=== PATIENT | male | born 1960 | race Caucasian/White ===

== ENCOUNTER 2017-02-19 09:14 | Outpatient (CLI) | payer OTHER | END 2017-02-19 09:15 | disposition home or self-care (01) | LOC: SC 09:14 | PROVIDERS: ATTEND Internal Medicine Pulmonary Disease | DX: G47.33 Obstructive sleep apnea (adult) (pediatric) (principal) | CPT/HCPCS: 99212; 99213 ==

== ENCOUNTER 2018-04-10 08:59 | Outpatient (CLI) | payer OTHER | END 2018-04-10 09:00 | disposition home or self-care (01) | LOC: SC 08:59 | PROVIDERS: ATTEND Nurse Practitioner Family | DX: G47.33 Obstructive sleep apnea (adult) (pediatric) (principal) | CPT/HCPCS: 99212; 99214 ==

== ENCOUNTER 2019-02-23 10:06 | Outpatient (CLI) | payer OTHER ==
--- NOTE | 2019-02-23 11:00 | SLEEP CARE CONSULTATION ---
Information from patient questionnaire entered by Christina Moran. I have reviewed and concur with the information entered by Christina Moran. This document represents the service I personally performed and the decisions made by me, Amy Rider, RN, MSN, BUTTER FAT TESTER. History of Present Illness Previous diagnosis: Very Severe, Obstructive Sleep Apnea-Hypopnea Syndrome AHI: 63.3 Reason for follow up: other (10 MONTH- TRANSFER DME ) Equipment type: CPAP Equipment obtained from: [employer] (would like to change to new company.) Mask style: Nasal (nasal - Dreamwear) Mask brand: Respironics Backup mask available: Yes Last cushion change: 3 months ago Prior sleep studies: Yes HPI additional information: patient is also due for an updated device and would like to proceed. He was shown both styles and differences. He chose to update to [employer] Respironics. CPAP Compliance Data - Data Reviewed with Patient Average duration of nightly device use: 7h 19m Compliance rate %: 99.4 Current pressure setting (cmH2O): 10-12.5 Humidity settin Heated hose settin Average residual AHI: 3.7 Average large leak: 1m 28s Subjective Patient concerns: reports: mask discomfort (mild intermittent nasal discomfort - he changed last about 3 months ago. ), dry mouth, nose, throat (intermittent dry mouth / throat). denies: aerophagia, air blowing in eyes, mask leak noise, condensation in mask/hose, nasal congestion, epistaxis Observed to snore while using device: No Current pressure setting perceived as: comfortable On therapy, patient: reports: sleeping better, awakening more refreshed, being more awake and alert during the day, more rested overall. denies: drowsiness while driving Initial [place] Sleepiness Scale score: 7 Current [place] Sleepiness Scale score: 4 Allergies and Home Medications Known drug allergies: Yes Home medication list reviewed: Yes Allergy and home medication list: Medication Name (generic/name brand) Strength & Dosage Cosopt 22.3-6.8 mg/ml ophthalmic solution One drop each eye twice daily Lumigan 0.0% ophthalmic solution One drop each eye daily Sertraline HCL 100mg tab one daily Meloxicam 15mg tab daily as needed Humira 40mg/0.8ml Kit (Adalimumab) 40mcg every 2 weeks Fosinopril Sodium 40mg tab one daily Hydrochlorothiazide 25mg tab one daily in the am Claritin (Loratadine) 10mg tab one daily Fluticasone Propionate 50mcg/act nasal One spray each nostril twice daily Fibercon 625mg tab two daily Multivitamins Tab one daily Allergy List Penicillin Cats Pollen (trees, grass, schneider, etc) Review of Systems Review of systems same as previous: No (right knee replacement ) Physical Exam Blood Pressure: 134/68 Cuff size: long Heart Rate: 79 O2 Saturation: 98 Height: 5 ft 11 in Weight: 316 lb 9.6 oz Weight change since last visit: lost 4 pounds Body Mass Index: 44.1 BMI Classification: Obesity Class 3 Impression and Plan 1. Obstructive Sleep Apnea-Hypopnea Syndrome, very severe, with good treatment compliance and good apnea control. On CPAP therapy, the patient has better sleep quality and is more rested overall. To reduce mask irritation, he is advised to change mask cushion more frequently. He would also like to change back to the Dreamwear nasal pillows. Until then, instead of vaseline which can break down the mask, I gave him samples of Marvin Ease nasal cream to use. Printed ins tructions given with information how to obtain more. To reduce dryness symptoms he is to reduce the heated hose. I will also update his CPAP which has a better system. His current CPAP is over 5 years old and of reasonable. He would also like to transfer to a new DME so I will have my e commerce merchandising coordinator inform of his choices and a DWO prescription will be made. He has started to lose weight. His goal is 50 pounds. I explained how significant weight loss can reduce apnea and CPAP pressure requirements. He is currently using the higher range of his autoPAP pressure so some weight loss should be accomodated with this range. Symptoms to report for pressure adjustment. I also showed him BMI chart and praised goal of weight loss as current BMI is Morbid obesity which also increases overall health risk. Patient's apnea severity and rationale for treatment to reduce apnea, improve sleep quality and reduce cardiovascular and cerebrovascular events was reviewed. I also reviewed the benefit of consistent device use of CPAP for hypertension, depression/anxiety. * Continue CPAP pressure at 10-12.5cmH2O * [facility] * Transfer to new DME * Mask refitting * Implement measures to reduce nasal irritation * Notify me if snoring with mask or feeling that the pressure is too much or too little * continue to lose weight * Return for follow up in 6 weeks after new device , or sooner if concerns arise I spent 100% of this 30 minute visit face to face with the patient with greater than 50% of this was spent time counseling the patient and coordination of care.
[2019-02-23 11:01] VITALS: BP 134/68
== END 2019-02-23 10:07 | disposition home or self-care (01) ==
LOC: SC 10:06
PROVIDERS: ATTEND Nurse Practitioner Family
DX: G47.33 Obstructive sleep apnea (adult) (pediatric) (principal); E66.01 Morbid (severe) obesity due to excess calories; Z68.41 Body mass index [BMI] 40.0-44.9, adult
CPT/HCPCS: 99212; 99214

== ENCOUNTER 2019-05-21 12:45 | Outpatient (CLI) | payer OTHER ==
[2019-05-21 13:41] VITALS: BP 130/68
--- NOTE | 2019-05-21 13:41 | SLEEP CARE CONSULTATION ---
Information from patient questionnaire entered by Frida Eng. I have reviewed and concur with the information entered by Frida Eng. This document represents the service I personally performed and the decisions made by me, Amy Rider, RN, MSN, TECHNICAL MANAGER. History of Present Illness Previous diagnosis: Very Severe, Obstructive Sleep Apnea-Hypopnea Syndrome AHI: 63.3 Reason for follow up: first compliance after device update Equipment type: CPAP Equipment obtained from: [facility] (not happy with new DME - in set up and charge for service as he was charged 3 times for same service / tried to contact corpor ate office but was referred to other numbers and resolve.) Mask style: Nasal (N30i) Mask brand: Resmed Backup mask available: Yes Last cushion change: none since set up HPI additional information: Patient came in office voicing frustration with new DME set up. He was set up with a new CPAP. He had to request the Dreamstation as was initially set up with Res Med device. Prescription stated Dreamstation. He is pleased with new Dreamstation CPAP. He was fitted with a new mask and no longer has nasal irritation. It is the Res Med nasal cushion mask with hose on top of head. Marvin Ease nasal cream reduced irritation until new mask. CPAP Compliance Data - Data Reviewed with Patient Average duration of nightly device use: 8 Compliance rate %: 100 Current pressure setting (cmH2O): 10-12.5 Humidity settin Heated hose settin Average residual AHI: 6.4 Central apnea: 0.3 Obstructive apnea: 5.3 Hypopnea: 0.8 Average large leak: 52 sec Subjective Patient concerns: reports: nasal congestion (intermittent), dry mouth, nose, throat (daily dry mouth- increasing in severity. ). denies: aerophagia, mask discomfort, air blowing in eyes, mask leak noise, condensation in mask/hose, epistaxis Observed to snore while using device: No Current pressure setting perceived as: comfortable On therapy, patient: reports: sleeping better, awakening more refreshed, being more awake and alert during the day, more rested overall. denies: drowsiness while driving Initial [place] Sleepiness Scale score: 7 Current [place] Sleepiness Scale score: 3 Allergies and Home Medications Known drug allergies: Yes (penicillin , cats, pollen ) Home medication list reviewed: Yes (lumigan replaced with latanoprost/added amlodipine 5mg daily/no other martin) Review of Systems Review of systems same as previous: Yes Physical Exam Blood Pressure: 130/68 Cuff size: long Heart Rate: 65 O2 Saturation: 98 Height: 5 ft 11 in Weight: 322 lb Weight change since last visit: gained 6 pounds Body Mass Index: 44.9 BMI Classification: Morbidly Obese Impression and Plan 1. Obstructive Sleep Apnea-Hypopnea Syndrome, very severe, with good treatment compliance and good apnea control on updated device . On CPAP therapy, the patient has better sleep quality and is more rested overall. Patient came in very frustrated with set up and charging for new CPAP with new DME. For DME concerns I will have him discuss his problems with our marketing and development coordinator who works with DMEs for transfers and service. In addition, I advised him to contact his insurance company to clarify payment and his responsibility. If he wishes to change DME to another company, he will probably have to return his new CPAP and start with new DME. He is to contact me for new transfer and set up if this is his decision and new compliance follow up to be scheduled. The patients pressure will be changed to autoCPAP 12-15 cmH20 For elevation of residual AHI. Patient advised to contact me if pressure change is uncomfortable so that it can be adjusted. Goals for apnea control discussed. I also showed him how he could track his AHI on a sample device and to contact me if above 5 consistently. I again reviewed his need for weight loss for overall kiah. He is currently morbidly obese which increases overall health risks. I also reviewed how weight loss reduces apnea and CPAP pressure requirements. I again reviewed symptoms to report for CPAP pressure adjustment. Patient's apnea severity and rationale for treatment to reduce apnea, improve sleep quality and reduce cardiovascular and cerebrovascular events was reviewed. I also reviewed the benefit of consistent device use of CPAP for hypertension, depression/anxiety. * Change CPAP pressure to 12-15 cmH2O * Notify me if snoring with mask or feeling that the pressure is too much or too little * Attempt to lose weight * Call this office if any problems using CPAP or if want to transfer DME * Return for follow up in 1 year , or sooner if concerns arise Counseling Topics: Weight loss health impact Time Spent with Patient (minutes): 35 I spent 100% of this visit face to face with the patient with greater than 50% of this was spent time counseling the patient and coordination of care.
== END 2019-05-21 12:46 | disposition home or self-care (01) ==
LOC: SC 12:45
PROVIDERS: ATTEND Nurse Practitioner Family
DX: G47.33 Obstructive sleep apnea (adult) (pediatric) (principal); E66.01 Morbid (severe) obesity due to excess calories; Z68.41 Body mass index [BMI] 40.0-44.9, adult
CPT/HCPCS: 99212; 99214

== ENCOUNTER 2019-06-13 12:57 | Outpatient (CLI) | payer OTHER ==
--- NOTE | 2019-06-13 14:08 | CT Report ---
Reason: CHRONIC PANSINUSITIS Procedure Date: 06/13/2019 Accession Number: [id number] / [id number] Procedure: CT - Sinuses CPT Code: Final Report FULL RESULT: EXAM: CT SINUS EXAM DATE: 06/13/2019 01:12 PM. HISTORY: 4-year-old presenting with chronic sinusitis type symptoms. Evaluate for sinus pathology. COMPARISONS: None. TECHNIQUE: Routine multi-axial CT imaging performed through the sinuses. Iodinated IV contrast: None. Reconstructions: Multiplanar reformats. In accordance with CT protocol optimization, one or more of the following dose reduction techniques were utilized for this exam: automated exposure control, adjustment of mA and/or KV based on patient size, or use of iterative reconstructive technique. FINDINGS: RIGHT Frontal: Mild mucosal thickening. Ethmoid: Postsurgical changes of ethmoidectomy. Mild mucosal thickening. Maxillary: Postsurgical changes of maxillary antrostomy and uncinectomy. There is mild mucosal thickening and small volume frothy material seen. There appears to be small volume air-fluid level. Sphenoid: Small volume frothy material. Drainage Pathways: There is obstruction of the right sphenoethmoidal recess. There is mild to moderate mucosal thickening of the frontal recess. The surgically modified ostiomeatal complex is patent. LEFT Frontal: Mild mix of thickening with small volume frothy material. Ethmoid: Postsurgical changes of ethmoidectomy. Mild mucosal thickening. Maxillary: Postsurgical changes of maxillary antrostomy and uncinectomy. Small volume air fluid level seen. Sphenoid: Minimal mucosal thickening. Drainage Pathways: There is moderate mucosal thickening of the frontal recess. The surgically modified ostiomeatal unit and sphenoethmoidal recess are patent. Nasal Cavity: Postsurgical changes of prior turbinectomy. There is hypertrophy of the right-sided turbinates. Slight asymmetry to the olfactory grooves with a large right olfactory groove compared to the left. The right olfactory groove depth measures 5.9 mm while the left olfactory groove depth measures 5.3 mm (series 5, image 45). Osseous Structures: Mild left TMJ arthropathy. No definite acute osseous fracture seen. No suspicious osseous lesion. Changes of hyperostosis frontalis internus. Orbits: Changes of bilateral lens replacement. There appears to be metallic structure along the lateral aspect of the left globe that may represent changes of scleral banding. Other: None. IMPRESSION: 1. Postsurgical changes of bilateral maxillary antrostomy, bilateral uncinectomy, bilateral ethmoidectomy, and bilateral turbinectomy. 2. There are small volume air-fluid levels seen within the maxillary sinuses as well as small-volume frothy material seen within the right maxillary sinus, right sigmoid sinus, and left frontal sinus. Findings may represent acute sinusitis in appropriate clinical setting. 3. Additional mild paranasal sinus mucosal thickening as detailed above. 4. There appears to be mucosal obstruction of the right sphenoethmoidal recess. There is mild to moderate mucosal thickening of the frontal recesses which appear patent. RADIA
== END 2019-06-13 12:58 | disposition home or self-care (01) ==
LOC: DI 12:57
PROVIDERS: ATTEND Otolaryngology
DX: J32.4 Chronic pansinusitis (principal)
CPT/HCPCS: 70486

== ENCOUNTER 2020-07-14 09:03 | Outpatient (CLI) | payer OTHER ==
--- NOTE | 2020-07-14 09:56 | SLEEP CARE CONSULTATION ---
Information from patient questionnaire entered by Frida Eng. I have reviewed and concur with the information entered by Frida Eng. This document represents the service I personally performed and the decisions made by , Maday Taylor ARNP. History of Present Illness Service Date and Time: 07/14/2020 0903 Previous diagnosis: Very Severe, Obstructive Sleep Apnea-Hypopnea Syndrome AHI: 63.3 (in 2014)(71.1 in 2013) Reason for follow up: annual (last seen 05/2019) Equipment type: CPAP Equipment obtained from: [employer] (in [place]; getting supplies as needed, very satisfied) Mask style: Nasal Mask brand: Resmed (N30i) Backup mask available: Yes (other mask) Last cushion change: 3 months Prior sleep studies: Yes Year and Where: 2014 - [facility] Type of Sleep Study: Polysomnography HPI additional information: ALEJANDRA GARCIA was diagnosed to have very severe, AHI 63.3, obstructive sleep apnea-hypopnea syndrome and returned today for CPAP therapy annual follow-up. CPAP Compliance Data - Data Reviewed with Patient Average duration of nightly device use: 7 hr 14 min Compliance rate %: 98.9 (180 days) Current pressure setting (cmH2O): 12-15 Humidity settin Heated hose settin Average residual AHI: 3.9 Average large leak: 1 min 35 sec Subjective Missed days of use due to: reports: other (power outage) Patient concerns: reports: dry mouth, nose, throat (has improved, he has adjusted humidity/heated hose as needed). denies: aerophagia, mask discomfort, air blowing in eyes, mask leak noise, condensation in mask/hose, nasal congestion, epistaxis, other Observed to snore while using device: No Current pressure setting perceived as: comfortable On therapy, patient: reports: sleeping better, awakening more refreshed, being more awake and alert during the day, more rested overall. denies: drowsiness while driving Initial [place] Sleepiness Scale score: 7 (in 2013) Current [place] Sleepiness Scale score: 2 Allergies and Home Medications Home medication list reviewed: Yes (no new meds) Review of Systems Review of systems same as previous: Yes (no changes) Physical Exam Heart Rate: 60 O2 Saturation: 98 Height: 5 ft 11 in Weight: 318 lb Body Mass Index: 44.3 BMI Classification: Morbidly Obese Impression and Plan 1. Obstructive Sleep Apnea-Hypopnea Syndrome, very severe, with excellent treatment compliance and good apnea control. On CPAP therapy, the patient has better sleep quality and is more rested overall. He has has some mouth dryness that is improving with adjusting his humidity or heated hose. He is currently at 1 on the humidity setting and 5 on the heated hose. I advised him to increase the humidity setting to 2-3 as needed. Oral dryness can be reduced by adjusting humidity setting higher or heated hose lower or by adjusting both settings. Verbal instructions given on how to change humidity and heated hose settings with rationale explaining why to change. Patient's apnea severity and rationale for treatment to reduce apnea, improve sleep quality and reduce cardiovascular and cerebrovascular events was reviewed. I also reviewed the benefit of consistent device use of CPAP for hypertension, depression and anxiety. 2. Morbid Obesity, unspecified. Currently patients BMI is 44.3. Obesity increases the risk of apnea, CPAP pressure requirements and overall health risks especially cardiovascular and diabetes. Thus patient is advised to lose weight. Weight loss can be done with reducing portion size, reducing refined foods and balancing content with vegetables, fruit and whole grain foods. The patient's CPAP pressure range should accommodate some weight loss. Symptoms to report for additional pressure adjustment discussed. * Continue auto CPAP pressure at 12-15 cmH2O * Notify me if snoring with mask or feeling that the pressure is too much or too little * Attempt to lose weight * Call this office if any problems using CPAP * Return for follow up in 1 year, or sooner if concerns arise Counseling Topics: Spare mask, Weight loss health impact Visit Type: In Office Time Spent with Patient (minutes): 15 Provider Statement: I spent 100% of the Face to Face Visit with the patient with greater than 50% spent counseling the patient and coordination of care.
== END 2020-07-14 09:04 | disposition home or self-care (01) ==
LOC: SC 09:03
PROVIDERS: ATTEND Nurse Practitioner Family
DX: G47.33 Obstructive sleep apnea (adult) (pediatric) (principal); E66.01 Morbid (severe) obesity due to excess calories; Z68.41 Body mass index [BMI] 40.0-44.9, adult
CPT/HCPCS: 99212

== ENCOUNTER 2020-08-20 12:00 | Outpatient (CLI) | payer OTHER ==
--- NOTE | 2020-08-20 17:53 | XRAY Report ---
PROCEDURE: Ankle 3 View RT INDICATIONS: ANKLE JOINT PAIN, RIGHT TECHNIQUE: 3 views of the ankle were acquired. COMPARISON: None FINDINGS: Bones: No acute fractures or dislocations. There is a remote, comminuted fracture seen involving the medial malleolus. Ankle mortise is normally aligned. No suspicious bony lesions. The talar dome d emonstrates an unremarkable appearance. Incidental note is made of a prominent enthesophyte at the Achilles insertion. Soft tissues: Generalized soft tissue swelling is seen. IMPRESSION: Remote, comminuted fracture fragments of the medial malleolus. Prominent enthesophyte formation along the Achilles insertion at the posterior calcaneus. Reviewed by: Henry Fuentes MD on 08/20/2020 4:51 PM [facility] Approved by: Henry Fuentes MD on 08/20/2020 4:51 PM [facility] Station ID: [id number]
== END 2020-08-20 23:59 | disposition home or self-care (01) ==
LOC: DI.N 12:00
PROVIDERS: ATTEND Family Medicine
DX: S82.51XA Displaced fracture of medial malleolus of right tibia, initial encounter for closed fracture (principal)

== ENCOUNTER 2021-08-09 10:47 | Outpatient (CLI) | payer OTHER ==
[2021-08-09 11:32] VITALS: BP 153/77
--- NOTE | 2021-08-09 11:32 | SLEEP CARE CONSULTATION ---
Information from patient questionnaire entered by Wyatt Curran MA. I have reviewed and concur with the information entered by Wyatt Curran MA. This document represents the service I personally performed and the decisions made by , Maday Taylor ARNP. History of Present Illness Service Date and Time: 08/09/2021 1100 Previous diagnosis: Very Severe, Obstructive Sleep Apnea-Hypopnea Syndrome AHI: 63.3 (in 2014)(71.1 in 2013) Reason for follow up: annual (LAST SEEN 07/14/2020, RESMED, ) Equipment type: CPAP Equipment obtained from: [employer] (in [place]; getting supplies as needed, very satisfied) Mask style: Nasal Mask brand: Respironics ([employer]wear) Backup mask available: Yes (old mask) Last cushion change: 1 week ago Prior sleep studies: Yes Year and Where: 2014 - [facility] Type of Sleep Study: Polysomnography HPI additional information: ALEJANDRA GARCIA was diagnosed to have very severe, AHI 63.3, obstructive sleep apnea-hypopnea syndrome and returned today for CPAP therapy annual follow-up. Sleep Study - Results Type of Sleep Study: Polysomnography Prior sleep studies: Yes Year and Where: 2014 - [facility] CPAP Compliance Data - Data Reviewed with Patient Average duration of nightly device use: 7 hours 3 minutes Compliance rate %: 98.9 (180 days; 178/180 used) Current pressure setting (cmH2O): 12-15 Humidity settin Heated hose settin Average residual AHI: 4.2 Central apnea: 0.3 Obstructive apnea: 3.2 Average large leak: 1 minute Subjective Missed days of use due to: reports: other (power outages) Patient concerns: reports: dry mouth, nose, throat (frequently, not all the time). denies: aerophagia, mask discomfort, air blowing in eyes, mask leak noise, condensation in mask/hose, nasal congestion, epistaxis, other Observed to snore while using device: No Current pressure setting perceived as: comfortable On therapy, patient: reports: sleeping better, awakening more refreshed, being more awake and alert during the day, more rested overall. denies: drowsiness while driving Initial [place] Sleepiness Scale score: 7 (in 2013) Current [place] Sleepiness Scale score: 2 Allergies and Home Medications Home medication list reviewed: Yes (no changes) Review of Systems Review of systems same as previous: Yes (no changes) Physical Exam Vital signs obtained and entered by: ALISIA Blood Pressure: 153/77 (left) Cuff size: wrist Heart Rate: 69 O2 Saturation: 96 (paper mask) Height: 5 ft 11 in Weight: 334 lb Body Mass Index: 46.5 BMI Classification: Morbidly Obese Impression and Plan 1. Obstructive Sleep Apnea-Hypopnea Syndrome, very severe, with good treatment compliance and good apnea control. On CPAP therapy, the patient has better sleep quality and is more rested overall. Patient states he may like to change from his nasal cushion to nasal pillows mask. He request this from his [employer] company. I will write a prescription to update his supplies with a note about the nasal pillows. Patient is satisfied with current treatment and has significant improvement of his sleep apnea. He has no complaints of skin irritation, epistaxis or aerophagia. He frequently gets oral dryness but has been adjusting his humidity and heated hose as needed. Patient's apnea severity and rationale for treatment to reduce apnea, improve sleep quality and reduce cardiovascular and cerebrovascular events was reviewed. I also reviewed the benefit of consistent device use of CPAP for hypertension, depression and anxiety. 2. Obesity, unspecified. Currently patients BMI is 46.5. Obesity increases the risk of apnea, CPAP pressure requirements and overall health risks especially cardiovascular and diabetes. Thus patient is advised to lose weight. * Continue auto CPAP pressure at 12-15 cmH2O * Update supplies * Notify me if snoring with mask or feeling that the pressure is too much or too little * Attempt to lose weight * Call this office if any problems using CPAP * Return for follow up in 1 year, or sooner if concerns arise Counseling Topics: Spare mask, Weight loss health impact Visit Type: In Office Time Spent with Patient (minutes): 18 Provider Statement: I spent 100% of the Face to Face Visit with the patient with greater than 50% spent counseling the patient and coordination of care.
== END 2021-08-09 10:48 | disposition home or self-care (01) ==
LOC: SC 10:47
PROVIDERS: ATTEND Nurse Practitioner Family
DX: G47.33 Obstructive sleep apnea (adult) (pediatric) (principal); E66.01 Morbid (severe) obesity due to excess calories; Z68.42 Body mass index [BMI] 45.0-49.9, adult
CPT/HCPCS: 99212

== ENCOUNTER 2021-08-19 08:00 | Outpatient (CLI) | payer OTHER ==
--- NOTE | 2021-08-19 16:52 | XRAY Report ---
PROCEDURE: Chest 2 View X-Ray INDICATIONS: PNEUMONIA TECHNIQUE: 2 view(s) of the chest. COMPARISON: None. FINDINGS: Surgical changes and devices: None. Lungs and pleura: No pleural effusions or pneumothorax. Lungs are clear. Mediastinum: Mediastinal contours are normal. Heart size is normal. Bones and chest wall: No suspicious bony abnormalities. Soft tissues appear unremarkable. IMPRESSION: No evidence of acute pulmonary process. Reviewed by: Nick Vidales MD on 08/19/2021 4:50 PM PDT Approved by: Nick Vidales MD on 08/19/2021 4:50 PM PDT Station ID: [id number]
== END 2021-08-19 23:59 | disposition home or self-care (01) ==
LOC: DI.N 08:00
PROVIDERS: ATTEND Physician Assistant Medical
DX: J18.9 Pneumonia, unspecified organism (principal)

== ENCOUNTER 2022-01-17 13:06 | Outpatient (CLI) | payer OTHER ==
--- NOTE | 2022-01-25 08:40 | Ultrasound Report ---
PROCEDURE: Axilla INDICATIONS: AXILLARY LYMPHADENOPATHY TECHNIQUE: Real-time focused scanning was performed of the left axilla, with image documentation. COMPARISON: None. FINDINGS: There are numerous right axillary lymph nodes which demonstrate normal cortical thickness w ith preservation of the fatty dolores and no threshold enlarged lymph node. IMPRESSION: Normal right axillary lymph nodes, without enlargement or suspicious features. Reviewed by: Jorge Leslie MD on 01/25/2022 8:39 AM PDT Approved by: Jorge Leslie MD on 01/25/2022 8:39 AM PDT Station ID: [id number]
== END 2022-01-17 13:07 | disposition home or self-care (01) ==
LOC: DI 13:06
PROVIDERS: ATTEND Registered Nurse
DX: R59.0 Localized enlarged lymph nodes (principal)

== ENCOUNTER 2022-01-17 13:07 | Outpatient (CLI) | payer OTHER ==
--- NOTE | 2022-01-17 15:14 | XRAY Report ---
PROCEDURE: Chest 2 View X-Ray INDICATIONS: AXILLARY LYMPHADENOPATHY TECHNIQUE: 2 views of the chest COMPARISON: 08/19/2021 FINDINGS: No surgical devices. The lung volumes are slightly low. No dense consolidation or pleural effusion. Heart size is normal. No acute or suspicious osseous abnormality. IMPRESSION: No acute radiographic abnormality. Reviewed by: Cain Burns MD on 01/17/2022 3:12 PM PDT Approved by: Cain Burns MD on 01/17/2022 3:12 PM PDT Station ID: [id number]
== END 2022-01-17 13:08 | disposition home or self-care (01) ==
LOC: DI 13:07
PROVIDERS: ATTEND Registered Nurse
DX: R59.0 Localized enlarged lymph nodes (principal)

== ENCOUNTER 2022-08-29 12:51 | Outpatient (CLI) | payer OTHER ==
--- NOTE | 2022-08-29 13:24 | Sleep Patient Instructions ---
Sleep Center Visit Summary - Patient Visit Information Reason for Visit: Annual visit for PAP therapy - Patient Instructions Additional Instructions: You will continue with CPAP therapy with pressure set at 12-15 cmH2O. A supply prescription will be updated with your DME. We encourage you to continue to try to lose weight. Please follow up with the sleep care office in 1 year. - Clinic Information Contact: [facility] [address] [place] [address] [email or web address] T: [phone]
--- NOTE | 2022-08-29 13:26 | SLEEP CARE CONSULTATION ---
Information from patient questionnaire entered by Vivienne Haq. I have reviewed and concur with the information entered by Vivienne Haq. This document represents the service I personally performed and the decisions made by me, Maday Taylor ARNP. History of Present Illness Service Date and Time: 08/29/2022 1251 Previous diagnosis: Very Severe, Obstructive Sleep Apnea-Hypopnea Syndrome AHI: 63.3 (in 2014)(71.1 in 2013) Reason for follow up: annual (LAST SEEN 07/2021) Equipment type: CPAP ([employer]LETT Dreamstation (not recalled) SD CARD NEEDED) Equipment obtained from: [employer] (in [place]; getting supplies as needed, very satisfied) Mask style: Nasal Mask brand: Respironics Backup mask available: Yes (other mask) Last cushion change: 2 months Prior sleep studies: Yes Year and Where: 2014 - [facility] Type of Sleep Study: Polysomnography HPI additional information: ALEJANDRA GARCIA was diagnosed to have very severe, AHI 63.3, obstructive sleep apnea-hypopnea syndrome and returned today for CPAP therapy annual follow-up. Sleep Study - Results Type of Sleep Study: Polysomnography Prior sleep studies: Yes Year and Where: 2014 - [facility] CPAP Compliance Data - Data Reviewed with Patient Average duration of nightly device use: 7 hours 31 minutes Compliance rate %: 100 (180/180 days used) Current pressure setting (cmH2O): 12-15 Average residual AHI: 3.8 Central apnea: 0.2 Obstructive apnea: 3 Hypopnea: 0.6 Average large leak: 48 secs Subjective Patient concerns: reports: dry mouth, nose, throat (mild dry nose; increased humidity, improved). denies: aerophagia, mask discomfort, air blowing in eyes, mask leak noise, condensation in mask/hose, nasal congestion, epistaxis Observed to snore while using device: No Current pressure setting perceived as: comfortable On therapy, patient: reports: sleeping better, awakening more refreshed, being more awake and alert during the day, more rested overall. denies: drowsiness while driving Initial [place] Sleepiness Scale score: 7 (in 2013) Current [place] Sleepiness Scale score: 0 (08/29/22) Allergies and Home Medications Known drug allergies: No Drug allergies reviewed: Yes Home medication list reviewed: Yes (Montelukast) Review of Systems Review of systems same as previous: Yes (no changes) Physical Exam Vital signs obtained and entered by: VIVIENNE Chilel MA Blood Pressure: 124/76 (LEFT ARM) Cuff size: long Heart Rate: 73 O2 Saturation: 98 Height: 5 ft 11 in Weight: 327 lb 12.8 oz Weight change since last visit: 7 lb loss Body Mass Index: 45.7 BMI Classification: Morbidly Obese Impression and Plan 1. Obstructive Sleep Apnea-Hypopnea Syndrome, very severe, with good treatment compliance and good apnea control. On CPAP therapy, the patient has better sleep quality and is more rested overall. Patient has significant improvement of their sleep apnea and is satisfied with current CPAP therapy. He did get a little bit of dry nose but increased his humidifier setting this has improved. He still gets a little bit dry but overall the dryness is better. Patient's apnea severity and rationale for treatment to reduce apnea, improve sleep quality and reduce cardiovascular and cerebrovascular events was reviewed. I also reviewed t he benefit of consistent device use of CPAP for hypertension, depression and anxiety. 2. Obesity, unspecified. Currently patients BMI is 45.7. Obesity increases the risk of apnea, CPAP pressure requirements and overall health risks especially cardiovascular and diabetes. Thus patient is advised to lose weight. * Continue auto CPAP pressure at 12-15 cmH2O * Update supplies * Notify me if snoring with mask or feeling that the pressure is too much or too little * Attempt to lose weight * Call this office if any problems using CPAP * Return for follow up in 1 year, or sooner if concerns arise Counseling Topics: Spare mask, Weight loss health impact Visit Type: In Office Time Spent with Patient (minutes): 20 Provider Statement: I spent 100% of the Face to Face Visit with the patient with greater than 50% spent counseling the patient and coordination of care.
[2022-08-29 13:27] VITALS: BP 124/76
== END 2022-08-29 12:52 | disposition home or self-care (01) ==
LOC: SC 12:51
PROVIDERS: ATTEND Nurse Practitioner Family
DX: G47.33 Obstructive sleep apnea (adult) (pediatric) (principal); E66.01 Morbid (severe) obesity due to excess calories; Z68.42 Body mass index [BMI] 45.0-49.9, adult
CPT/HCPCS: 99212; 99213

== ENCOUNTER 2022-12-07 12:48 | Outpatient (CLI) | payer OTHER | END 2022-12-07 12:49 | disposition EMS.NT | LOC: EMS 12:48 | DX: Z03.89 Encounter for observation for other suspected diseases and conditions ruled out (principal) ==

== ENCOUNTER 2023-07-02 10:21 | Outpatient (CLI) | payer OTHER ==
--- NOTE | 2023-07-02 10:48 | SLEEP CARE CONSULTATION ---
Information from patient questionnaire entered by Vivienne Haq. I have reviewed and concur with the information entered by Vivienne Haq. This document represents the service I personally performed and the decisions made by me, Maday Taylor ARNP. History of Present Illness Service Date and Time: 07/02/2023 1021 Previous diagnosis: Very Severe, Obstructive Sleep Apnea-Hypopnea Syndrome AHI: 63.3 (in 2014)(71.1 in 2013) Reason for follow up: first compliance after device update Equipment type: CPAP ([employer] 11 AUTOSET S/U 05/15/23) Equipment obtained from: [employer] (in [place]; getting supplies as needed, very satisfied) Mask style: Nasal Mask brand: Respironics (Dreamwear) Backup mask available: Yes Last cushion change: 1 month Prior sleep studies: Yes Year and Where: 2014 - [facility] Type of Sleep Study: Polysomnography HPI additional information: ALEJANDRA GARCIA was diagnosed to have very severe, AHI 63.3, obstructive sleep apnea-hypopnea syndrome and returned today for CPAP therapy first compliance after updating device follow-up. Sleep Study - Results Type of Sleep Study: Polysomnography Prior sleep studies: Yes Year and Where: 2014 - [facility] CPAP Compliance Data - Data Reviewed with Patient Average duration of nightly device use: 7 HRS 5 MINS Compliance rate %: 80 (05/15/23-06/13/23; 25/30 days used) Current pressure setting (cmH2O): 12-15 (median 12.8, avg 14.8, max 14.9) Average residual AHI: 4.9 Central apnea: 0.2 Obstructive apnea: 4.1 Hypopnea: 0.5 Average large leak: 1.7 L/min Subjective Patient concerns: reports: mask leak noise (from sleeping on sides), dry mouth, nose, throat (dry mouth). denies: aerophagia, mask discomfort, air blowing in eyes, condensation in mask/hose, nasal congestion, epistaxis Observed to snore while using device: No Current pressure setting perceived as: comfortable On therapy, patient: reports: sleeping better, awakening more refreshed, being more awake and alert during the day, more rested overall. denies: drowsiness while driving Initial [place] Sleepiness Scale score: 7 (in 2013) Current [place] Sleepiness Scale score: 2 (07/02/23) Allergies and Home Medications Known drug allergies: Yes (penicillins) Drug allergies reviewed: Yes Home medication list reviewed: Yes (no changes) Allergy and home medication list: Allergies Penicillins Allergy (Verified 06/28/23 09:56) Review of Systems Review of systems same as previous: Yes (NO CHANGE) Physical Exam Vital signs obtained and entered by: VIVIENNE Chilel MA Blood Pressure: 151/79 (RIGHT ARM) Cuff size: long Heart Rate: 67 O2 Saturation: 96 Height: 5 ft 11 in Weight: 321 lb 3.2 oz Body Mass Index: 44.8 BMI Classification: Morbidly Obese Impression and Plan 1. Obstructive Sleep Apnea-Hypopnea Syndrome, very severe, with good treatment compliance and good apnea control. On CPAP therapy, the patient has better sleep quality and is more rested overall. Patient has significant improvement of their sleep apnea and is satisfied with current CPAP therapy. However, his residual AHI is on border at 4.9. After discussing with patient, the patients pressure will be changed to autoCPAP 12-16 cmH20 to help reduce residual AHI. Patient advised to contact me if pressure change is uncomfortable so that it can be adjusted. Goals for apnea control discussed. Oral dryness can be reduced by adjusting humidity setting higher or heated hose lower or by adjusting both settings. Patient may be oral venting and I advised him to try a chinstrap or snoring strips on his mouth to reduce this. Oral dryness can also be reduced by reducing mask leaks. Patient advised that chronic oral dryness can affect dental health. He says he will try to obtain a chinstrap and I added this to prescription for him to obtain. Patient's apnea severity and rationale for treatment to reduce apnea, improve sleep quality and reduce cardiovascular and cerebrovascular events was reviewed. I also reviewed the benefit of consistent device use of CPAP for hypertension, depression/anxiety. 2. Obesity, unspecified. Currently patients BMI is 44.8. Obesity increases the risk of apnea, CPAP pressure requirements and overall health risks especially cardiovascular and diabetes. Thus patient is advised to lose weight. * Change auto CPAP pressure to 12-16 cmH2O * Notify me if snoring with mask or feeling that the pressure is too much or too little * Attempt to lose weight * Call this office if any problems using CPAP * Return for follow up in 12 months, or sooner if concerns arise Adjust device pressure to (cmH2O): 12-16 Counseling Topics: Weight loss health impact Prescriptions: Other (chinstrap) Follow up with Sleep Care in: 1 year Visit Type: In Office Time Spent with Patient (minutes): 20 Provider Statement: I spent 100% of the Face to Face Visit with the patient with greater than 50% spent counseling the patient and coordination of care.
[2023-07-02 10:53] VITALS: BP 151/79; O2SAT 96
== END 2023-07-02 10:22 | disposition home or self-care (01) ==
LOC: SC 10:21
PROVIDERS: ATTEND Nurse Practitioner Family
DX: G47.33 Obstructive sleep apnea (adult) (pediatric) (principal); E66.01 Morbid (severe) obesity due to excess calories; Z68.41 Body mass index [BMI] 40.0-44.9, adult
CPT/HCPCS: 99212; 99213